=== PATIENT | female | born 2000 | race Caucasian/White ===

== ENCOUNTER 2018-09-21 13:22 | Emergency (ER) | payer OTHER ==
[~2018-09-21] VITALS: Ht 160 cm; Wt 49.4 kg
[2018-09-21 14:15] VITALS: BP 114/74; Ht 160 cm; Wt 49.4 kg
== END 2018-09-21 15:49 | disposition left against medical advice (07) ==
LOC: ED 13:22
DX: Z53.21 Procedure and treatment not carried out due to patient leaving prior to being seen by health care provider (principal)